=== PATIENT | female | born 1995 | race Caucasian/White ===

== ENCOUNTER 2017-12-18 12:55 | Emergency (ER) | payer OTHER ==
[~2017-12-18] VITALS: Ht 154.9 cm; Wt 73.9 kg
[2017-12-18 13:04] VITALS: BP 150/89; Ht 154.9 cm; Wt 73.9 kg
== END 2017-12-18 16:54 | disposition left against medical advice (07) ==
LOC: ED 12:55
DX: Z53.21 Procedure and treatment not carried out due to patient leaving prior to being seen by health care provider (principal)